=== PATIENT | male | born 1975 | race Caucasian/White ===

== ENCOUNTER 2018-01-09 13:51 | Emergency (ER) | payer BC, SELFPAY ==
[2018-01-09 13:58] VITALS: BP 155/92; PULSE 87; RESP 20; TEMP 37.2; O2SAT 97; BMI 21.2
[2018-01-09 14:25] VITALS: BP 152/104; PULSE 112; RESP 18; TEMP 36.6; O2SAT 98; BMI 21.0
--- NOTE | 2018-01-09 15:11 | HMH.EDUTC ---
[facility] [place] Disposition Clinical Impression: Animal bite Disposition: Home, Self-Care Condition on Discharge: Good Instructions: DI for Dog Bite Additional Instructions: Follow up with family doctor the first of next week for wound culture results to see if antibiotic needs to be changed and covering correct infection If you seen worsening of redness, streaks, swelling, or warmth go straight to ER REturn if needed Take medication as prescribed Over the counter Motrin or Tylenol as needed for pain and fever Prescriptions: Amoxicillin/Potassium Clav [Augmentin 875-125 Tablet] 1 tab PO Q12H #20 tab Forms: Work/School Release Time of Disposition: 15:31 Medical Decision Making - Medical Records Medical records reviewed: Yes: I reviewed the patient's medical records. Vital Signs: 01/09/18 13:58 01/09/18 14:25 Temperature 98.9 F 97.9 F Temperature Source Tympanic Oral Pulse Rate [Right Radial] 87 112 H Respiratory Rate 20 18 Blood Pressure [Left Arm] 155/92 152/104 Blood Pressure Mean [Left Arm] 113 120 Blood Pressure Source [Left Arm] Automatic Cuff Blood Pressure Position [Left Arm] Sitting Sitting 02 Sat by Pulse Oximetry 97 98 Oxygen Delivery Method Room Air Room Air Orders (Tests/Meds): ORDERS Category Date Time Status Wound Culture and Gram Stain ONCE Micro 01/09/18 14:34 Uncollected - Gregor Inquiry Pt receiving controlled substance: No Gregor was queried for this patient: No - Reevaluation(s) Time: 15:25 Reevaluation #1: Wound Culture obtained and sent to lab, wound area cleaned well with betadine and saline Area was marked and patient educated to watch for worsening of redness outside of marked lines and if redness continued to get worse, seen streaks or worsening of swelling along with fever to go straight to ER, DIscussed treatement with Antibiotics with Pharmacy and agreed Augmentin and have patient follow up with family doctor in 2-3 days for culture results to see if antibiotic needs changed [facility] [place] HPI - General Stated complaint: AO [id number] puppy scratch r thumb Mode of Arrival: Ambulatory Source of Information: Patient Limitations: No Limitations Description of Symptoms (Recalled from Triage Doc. by RN): sores on right thumb and hand; oozing yellowish/brown pus from dog scratch. HEENT Symptoms (Recalled from RN notes): No Resp Symptoms (Recalled from RN notes): No Skin Symptoms (Recalled from RN notes): Yes (open sore on r thumb and r hand, draining) MS Symptoms (Recalled from RN notes): No Functional Status (Recalled from RN notes): na - History of Present Illness Provider Complaint: Patient states that he was playing with his puppy about 2 weeks ago when the pup was trying to bite at a toy and accidently bite him on the hand States that he has been cleaning areas on his hand for the last 2 weeks with peroxide and alcohol State that he had 2 areas one on his right thumb and the top of his right hand State that today he noticed that areas looked red and was oozing puss like liquid from the wounds so he thought he better come in and get them checked out - Related Data Previous Rx's Medication Instructions Recorded Amoxicillin/Potassium Clav 1 tab PO Q12H #20 tab 01/09/18 [Augmentin 875-125 Tablet] Allergies Allergy/AdvReac Type Severity Reaction Status Date / Time NO KNOWN ALLERGIES Allergy Uncoded 11/04/17 14:36 - Worker's Comp Is this a Worker's Comp case?: No Is this an H Worker's Comp?: No Is this a [place] Worker's Comp?: No H History I have reviewed the patient's past medical history: Yes Medical History: Denies:: Cancer, Diabetes Mellitus Type 1, Diabetes Mellitus Type 2, MRSA Amputation: No - Social History Smoking Status: Current every day smoker Tobacco Type: cigarettes Alcohol Intake: never - Psychiatric History Expresses thoughts of harming self/others: None Suicide Plan Description: No Plan ROS Obtained: Yes All systems reviewed & no
--- NOTE | 2018-01-09 15:17 | ED_ITS ---
[facility] [place] Clinical Impression: Animal bite Disposition: Home, Self-Care Condition on Discharge: Good Instructions: DI for Dog Bite Additional Instructions: Follow up with family doctor the first of next week for wound culture results to see if antibiotic needs to be changed and covering correct infection If you seen worsening of redness, streaks, swelling, or warmth go straight to ER REturn if needed Take medication as prescribed Over the counter Motrin or Tylenol as needed for pain and fever Prescriptions: Amoxicillin/Potassium Clav [Augmentin 875-125 Tablet] 1 tab PO Q12H #20 tab Forms: Work/School Release Time of Disposition: 15:31 Medical Decision Making - Medical Records Medical records reviewed: Yes: I reviewed the patient's medical records. Vital Signs: 01/09/18 13:58 01/09/18 14:25 Temperature 98.9 F 97.9 F Temperature Source Tympanic Oral Pulse Rate [Right Radial] 87 112 H Respiratory Rate 20 18 Blood Pressure [Left Arm] 155/92 152/104 Blood Pressure Mean [Left Arm] 113 120 Blood Pressure Source [Left Arm] Automatic Cuff Blood Pressure Position [Left Arm] Sitting Sitting 02 Sat by Pulse Oximetry 97 98 Oxygen Delivery Method Room Air Room Air Orders (Tests/Meds): ORDERS Category Date Time Status Wound Culture and Gram Stain ONCE Micro 01/09/18 14:34 Uncollected - Gregor Inquiry Pt receiving controlled substance: No Gregor was queried for this patient: No - Reevaluation(s) Time: 15:25 Reevaluation #1: Wound Culture obtained and sent to lab, wound area cleaned well with betadine and saline Area was marked and patient educated to watch for worsening of redness outside of marked lines and if redness continued to get worse, seen streaks or worsening of swelling along with fever to go straight to ER, DIscussed treatement with Antibiotics with Pharmacy and agreed Augmentin and have patient follow up with family doctor in 2-3 days for culture results to see if antibiotic needs changed [facility] [place] HPI - General Stated complaint: AO [id number] puppy scratch r thumb Mode of Arrival: Ambulatory Source of Information: Patient Limitations: No Limitations Description of Symptoms (Recalled from Triage Doc. by RN): sores on right thumb and hand; oozing yellowish/brown pus from dog scratch. HEENT Symptoms (Recalled from RN notes): No Resp Symptoms (Recalled from RN notes): No Skin Symptoms (Recalled from RN notes): Yes (open sore on r thumb and r hand, draining) MS Symptoms (Recalled from RN notes): No Functional Status (Recalled from RN notes): na - History of Present Illness Provider Complaint: Patient states that he was playing with his puppy about 2 weeks ago when the pup was trying to bite at a toy and accidently bite him on the hand States that he has been cleaning areas on his hand for the last 2 weeks with peroxide and alcohol State that he had 2 areas one on his right thumb and the top of his right hand State that today he noticed that areas looked red and was oozing puss like liquid from the wounds so he thought he better come in and get them checked out - Related Data Previous Rx's Medication Instructions Recorded Amoxicillin/Potassium Clav 1 tab PO Q12H #20 tab 01/09/18 [Augmentin 875-125 Tablet] Allergies Allergy/AdvReac Type Severity Reaction Status Date / Time NO KNOWN ALLERGIES Allergy Uncoded 11/04/17 14:36
[2018-01-09 15:42] VITALS: BP 152/104; PULSE 112; RESP 18; TEMP 36.6; O2SAT 98
== END 2018-01-09 15:43 | disposition home or self-care (01) ==
LOC: ER 14:06 → UTC 14:11
PROVIDERS: Emergency Provider Emergency Medicine; Family Provider Family Medicine
DX: S60.371A Other superficial bite of right thumb, initial encounter (principal); W54.0XXA Bitten by dog, initial encounter; Y92.019 Unspecified place in single-family (private) house as the place of occurrence of the external cause; F17.210 Nicotine dependence, cigarettes, uncomplicated
CPT/HCPCS: 87070; 87077; 87186; 87205; 99202; 99281

== ENCOUNTER 2020-03-23 20:38 | Emergency (ER) | payer OTHER, BC, SELFPAY ==
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
[2020-03-23 20:52] VITALS: BP 147/108; PULSE 101; RESP 17; TEMP 36.6; O2SAT 97
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
[2020-03-23 21:07] VITALS: BMI 21.2
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
[2020-03-23 21:11] LABS: POC Glucose,Bedside 98 (70-110)
[2020-03-23 21:39] LABS: Chloride 101 mmol/L (98-107); Sodium 142 mmol/L (136-145)
[2020-03-23 21:40] LABS: Potassium 4.4 mmoL/L (3.5-5.1)
[2020-03-23 21:42] LABS: Alanine Aminotransferase 47 U/L (12-78); Albumin Level 5.4 g/dl (3.5-5.0); Albumin/Globulin Ratio 1.4 (1.1-1.8); Alkaline Phosphatase 118 U/L (38-126); Anion Gap 16.4 mEq/L (5-15); Aspartate Amino Transferase 117 U/L (17-59); Bilirubin,Total 0.5 mg/dl (0.2-1.3); Blood Urea Nitrogen 7 mg/dl (9-20); Calcium 9.7 mg/dl (8.4-10.2); Carbon Dioxide 29 mmol/L (22.0-30.0); Creatinine Clearance Estimated 130 mL/min (50-200); Estimated Glomerular Filt Rate 106 ml/min (>60); GFR (African American) 128 ML/MIN (>60); Globulin 3.9 g/dL (1.3-3.2); Glucose 110 mg/dl (74-100); Total Protein,Serum 9.3 g/dl (6.3-8.2)
[2020-03-23 21:43] LABS: Basophils # 0.1 K/mm3 (0-0.2); Eosinophils # 0.1 K/mm3 (0.0-0.4); Eosinophils % 0.7 % (0.1-12.0); Hematocrit 48.5 % (42.0-52.0); Hemoglobin 15.6 g/dL (14.1-18.0); Lymphocytes # 1.8 K/mm3 (0.7-4.5); Lymphocytes % 22.4 % (10-50); Mean Corpuscular HGB Conc 32.1 g/dL (31.8-35.4); Mean Corpuscular Hemoglobin 33.9 pg (27.0-31.2); Mean Corpuscular Volume 105.6 fl (80-94); Mean Platelet Volume 7.7 fl (7.4-10.4); Monocytes # 0.4 K/mm3 (0.1-1.0); Monocytes % 5.5 % (1.7-9.3); Neutrophils # 5.7 K/mm3 (1.8-7.8); Neutrophils % 70.5 % (37.0-80.0); Platelet Count 167 K/mm3 (142-424); Red Blood Count 4.59 M/mm3 (4.60-6.20); White Blood Count 8.1 K/mm3 (4.8-10.8)
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
[2020-03-23 22:03] LABS: Ethyl Alcohol 280 mg/dl (0-10)
[2020-03-23 22:14] VITALS: BP 164/91; PULSE 92; RESP 16; O2SAT 97
--- NOTE | 2020-03-23 22:28 | ECG_ITS ---
APPROVED REPORT Exam: Resting ECG HR:88 bpm ECG Measurements Heart Rate 88 AXES ID 134 P 75 QRSd 96 QRS 85 QT 362 T 76 QTc 438 <Conclusion> Normal sinus rhythm ST/T-wave changes consistent with early repolarization. Inferior Q waves are of questionable significance Abnormal ECG Electronically signed by : Cleveland Almazan, 03/25/2020 10:58:08
[2020-03-23 22:41] LABS: Creatine Kinase 559 U/L (55-170)
[2020-03-23 22:56] LABS: Troponin I < 0.01 ng/ml (0.00-0.034)
[2020-03-23 23:00] VITALS: BP 156/101; PULSE 89; RESP 16; O2SAT 97
[2020-03-23 23:30] VITALS: BP 159/105; PULSE 92; RESP 16; O2SAT 97
[2020-03-24] VITALS: BP 148/96; PULSE 95; RESP 16; O2SAT 97
[2020-03-24 00:01] VITALS: BP 148/96; PULSE 95; RESP 16; TEMP 37.2; O2SAT 98
== END 2020-03-24 00:02 | disposition short-term general hospital (02) ==
PROVIDERS: Emergency Provider Emergency Medicine
DX: S22.22XA Fracture of body of sternum, initial encounter for closed fracture (principal); V49.50XA Passenger injured in collision with unspecified motor vehicles in traffic accident, initial encounter; F17.210 Nicotine dependence, cigarettes, uncomplicated; F10.10 Alcohol abuse, uncomplicated
CPT/HCPCS: 70450; 71045; 71275; 72125; 72170; 74177; 80053; 82550; 82962; 84484; 85025; 93005; 96365; 96375; 99283; 99284; Q9967

== ENCOUNTER → 2020-04-06 12:32 | Outpatient (CLI) | payer BC, SELFPAY ==
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
== END ==
PROVIDERS: PCP Family Medicine; Visit Provider Family Medicine
DX: R07.89 Other chest pain (principal); S22.22XA Fracture of body of sternum, initial encounter for closed fracture
CPT/HCPCS: 71120

== ENCOUNTER 2021-07-30 18:32 | Emergency (ER) | payer OTHER, SELFPAY ==
[2021-07-30 20:10] VITALS: BP 172/103; PULSE 116; RESP 16; TEMP 36.8; O2SAT 95; BMI 21.9
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
--- NOTE | 2021-07-30 20:37 | HMH.EDUTC ---
[facility] [place] Dis[place] Clinical Impression: Wound infection, Multiple injuries Disposition: Home, Self-Care Condition on Discharge: Good Instructions: DI for Wound Infection, Trimethoprim/Sulfamethoxazole (Alternative Therapy) Additional Instructions: Make sure to call Dr Larrys office first thing in the morning for appointment and let them know you was seen in [facility] Take medication as prescribed *Start antibiotic(s) immediately and be sure to take as ordered for the FULL length of time although you may be feeling better or start to see improvement in the next 24-48 hours *Monitor closely. Outlined redness so that you can monitor easier. Follow up immediately for new or worsening symptoms including but not limited to redness, swelling, streaking from site fever or chills. *Never squeeze or pop these on your own. Seek immediate medical attention next time this occurs *Monitor Temp. Tylenol every 4 hours as needed and ibuprofen every 6 hours as needed (as long as your primary care doctor has told you that it is ok to take both. For fever, aches, pain. ER if no less that 101 despite Tylenol and ibuprofen Follow up with your family doctor/primary care physician in the next 48-72 hours if no improvement Again Take medication as prescribed and follow up with Dr Larry call office tomorrow morning for appointment Prescriptions: Sulfamethoxazole/Trimethoprim [Bactrim DS tablet] 1 each PO BID #20 tab Transmission Status: Pending to [facility] Referrals: Myron Larry MD [Staff Physician] - (Call office first thing in the morning for appointment) Wojciech Boyle MD [Primary Care Provider] - As needed Forms: Work/School Release Medical Decision Making - Gregor Inquiry Pt receiving controlled substance: No Gregor was queried for this patient: No Vital Signs: 07/30/21 20:10 07/30/21 21:00 Temperature 98.2 F 98.2 F Temperature Source Oral Pulse Rate 116 H Pulse Rate [Right Brachial] 116 H Respiratory Rate 16 16 Blood Pressure 172/103 H Blood Pressure [Right Arm] 172/103 H Blood Pressure Mean [Right Arm] 126 Blood Pressure Source [Right Arm] Automatic Cuff Blood Pressure Position [Right Arm] Sitting 02 Sat by Pulse Oximetry 95 Oxygen Delivery Method Room Air Orders (Tests/Meds): ED MEDICATIONS Discontinued Medications Generic Name Dose Route Start Last Admin Trade Name Freq PRN Reason Stop Dose Admin Trimethoprim/Sulfamethoxazole 1 each 07/30/21 21:41 07/30/21 21:54 Sulfa/Trimethoprim 1 Tablet PO 07/30/21 21:42 1 each ONCE ONE Administration ORDERS Category Date Time Status Tibia/fibula XR right 2 views [XR tibia fibula RT 2V] Exams 07/30/21 20:22 Taken Stat - Radiology Data #1 Image(s): Chest (with left ribs) Image Reviewed: Yes I have reviewed radiologist's interpretation IMPRESSION: No acute findings. #2 Image(s): Elbow (right) Image Reviewed: Yes I have reviewed radiologist's interpretation IMPRESSION: No acute findings #3 Image(s): Tib/Fib Image Reviewed: Yes I have reviewed radiologist's interpretation IMPRESSION: Soft tissue injury without acute osseous abnormality. - Physician Consults Physician Consulted: Dr Larry Time: 21:22 Reason -: Surgical Eval/Care Comment/Response: Spoke with Dr Larry concerning wound on right lower leg and redness and needing evaluation for possibly opening and debriding wound and he advised start patient on Bactrim and have him call office tomorrow morning first thing for appointment Medical Decision Narrative: Discussed with patient due to appearance of wound on right lower leg recommended lab work and transfer to the ED for further work up and evaluation and patient declined State that he would just like something for the infection Discussed with patient if he would follow up with Surgery to have them look at it to see if Patient discussed with patient about blood pressure and again recommended transfer to the
[2021-07-30 21:00] VITALS: BP 172/103; PULSE 116; RESP 16; TEMP 36.8; O2SAT 95
== END 2021-07-30 22:15 | disposition home or self-care (01) ==
PROVIDERS: Emergency Provider Nurse Practitioner; PCP Family Medicine
DX: L03.115 Cellulitis of right lower limb (principal); T07.XXXA Unspecified multiple injuries, initial encounter; Y92.019 Unspecified place in single-family (private) house as the place of occurrence of the external cause; W11.XXXA Fall on and from ladder, initial encounter; F17.210 Nicotine dependence, cigarettes, uncomplicated
CPT/HCPCS: 71101; 73080; 73590; 99202; G0463

== ENCOUNTER → 2021-08-04 13:04 | Outpatient (CLI) | payer BC, SELFPAY | PROVIDERS: PCP Family Medicine; Visit Provider Surgery | DX: M79.661 Pain in right lower leg (principal); L03.115 Cellulitis of right lower limb; T14.8XXA Other injury of unspecified body region, initial encounter; Z48.00 Encounter for change or removal of nonsurgical wound dressing | CPT/HCPCS: G0463 ==

== ENCOUNTER 2021-08-06 16:50 | Outpatient (CLI) | payer BC, SELFPAY | END 2021-08-06 17:29 | disposition home or self-care (01) | LOC: INF 16:51 | PROVIDERS: PCP Family Medicine; Visit Provider Surgery | DX: S81.801A Unspecified open wound, right lower leg, initial encounter (principal); Z48.00 Encounter for change or removal of nonsurgical wound dressing | CPT/HCPCS: G0463 ==

== ENCOUNTER 2021-08-10 15:31 | Outpatient (CLI) | payer BC, SELFPAY | END 2021-08-10 15:50 | disposition home or self-care (01) | LOC: INF 15:32 | PROVIDERS: PCP Family Medicine; Visit Provider Surgery | DX: M79.661 Pain in right lower leg (principal); L03.115 Cellulitis of right lower limb; T14.8XXA Other injury of unspecified body region, initial encounter; Z48.00 Encounter for change or removal of nonsurgical wound dressing | CPT/HCPCS: G0463 ==

== ENCOUNTER 2022-03-11 14:28 | Emergency (ER) | payer OTHER, SELFPAY ==
[2022-03-11 15:44] LABS: Adenovirus,PCR Not Detected (NotDetected); Bordetella Pertussis Not Detected (NotDetected); Chlamydophila Pneumoniae, PCR Not Detected (NotDetected); Coronavirus 19, PCR Not Detected (NotDetected); Coronavirus 229E Not Detected (NotDetected); Coronavirus NL63 Not Detected (NotDetected); Coronavirus OC43 Not Detected (NotDetected); Coronovirus HKU1,PCR Not Detected (NotDetected); Human Metapneumovirus Not Detected (NotDetected); Influenza A, PCR Not Detected (NotDetected); Influenza AH1, 2009 Not Detected (NotDetected); Influenza AH1, PCR Not Detected (NotDetected); Influenza AH3,PCR Not Detected (NotDetected); Influenza B, PCR Not Detected (NotDetected); Mycoplasma Pneumoniae, PCR Not Detected (NotDetected); Parainfluenza 1, PCR Not Detected (NotDetected); Parainfluenza 2, PCR Not Detected (NotDetected); Parainfluenza 3, PCR Not Detected (NotDetected); Parainfluenza 4, PCR Not Detected (NotDetected); Respiratory Syncytial Virus Not Detected (NotDetected); Rhinovirus/Enterovirus Not Detected (NotDetected)
[2022-03-11 15:49] VITALS: BP 141/90; PULSE 91; RESP 19; TEMP 36.8; O2SAT 98; BMI 19.2
--- NOTE | 2022-03-11 15:56 | HMH.EDUTC ---
[facility] [place] Disposition Clinical Impression: Exposure to COVID-19 virus Nausea & vomiting Qualifiers: Vomiting type: unspecified Qualified Code(s): R11.2 - Nausea with vomiting, unspecified Disposition: Home, Self-Care Condition on Discharge: Good Instructions: Ondansetron, DI for COVID-19 (Suspected or Confirmed ), COVID-19 Viral Test Additional Instructions: Quarantine for at least 5 days Stay home Stay home and quarantine for at least 5 full days. Wear a well-fitting mask if you must be around others in your home. Do not travel. Get tested Even if you don?t develop symptoms, get tested at least 5 days after you last had close contact with someone with COVID-19. After quarantine Watch for symptoms Watch for symptoms until 10 days after you last had close contact with someone with COVID-19. Avoid travel It is best to avoid travel until a full 10 days after you last had close contact with someone with COVID-19. If you develop symptoms Isolate immediately and get tested. Continue to stay home until you know the results. Wear a well-fitting mask around others. Take precautions until day 10 Wear a well-fitting mask Wear a well-fitting mask for 10 full days any time you are around others inside your home or in public. Do not go to places where you are unable to wear a well-fitting mask. If you must travel during days 6-10, take precautions. Avoid being around people who are more likely to get very sick from COVID-19. You may check your results on the [facility] My Health Portal Return if needed Straight to ER if any life threatening symptoms Prescriptions: Ondansetron [Zofran 4mg ODT] 4 mg PO TIDP PRN #10 tab PRN Reason: Nausea Transmission Status: Pending to [facility] Referrals: Wojciech Boyle MD [Primary Care Provider] - As needed Forms: Work/School Release Time of Disposition: 16:09 Medical Decision Making - Gregor Inquiry Pt receiving controlled substance: No Gregor was queried for this patient: No Vital Signs: 03/11/22 15:49 Temperature 98.2 F Temperature Source Oral Pulse Rate [Right Radial] 91 H Respiratory Rate 19 Blood Pressure [Right Arm] 141/90 H Blood Pressure Mean [Right Arm] 107 Blood Pressure Source [Right Arm] Automatic Cuff Blood Pressure Position [Right Arm] Sitting 02 Sat by Pulse Oximetry 98 Oxygen Delivery Method Room Air Orders (Tests/Meds): ORDERS Category Date Time Status Full Resp Panel w/COVID ([facility]) Routine Lab 03/11/22 15:36 Received [facility] HPI - General Stated complaint: stomach ache, congestion, runny nose Time Seen by Provider: 03/11/22 15:57 Mode of Arrival: Ambulatory Source of Information: Patient Limitations: No Limitations Description of Symptoms (Recalled from Triage Doc. by RN): Pt stated that he has nausea, chills, fatigue, and was exposed to covid. HEENT Symptoms (Recalled from RN notes): Yes Resp Symptoms (Recalled from RN notes): No Skin Symptoms (Recalled from RN notes): No MS Symptoms (Recalled from RN notes): No Functional Status (Recalled from RN notes): n/a - History of Present Illness Provider Complaint: Patient states that he lives with a friend and recenty his son tested positive for COVID states that he has been having fatigue, body aches, chills and N/V and he came in to get checked for the virus - Related Data Previous Rx's Medication Instructions Recorded Amoxicillin/Potassium Clav 1 tab PO Q12H #20 tab 01/09/18 [Augmentin 875-125 Tablet] Sulfamethoxazole/Trimethoprim 1 each PO BID #20 tab 07/30/21 [Bactrim DS tablet] Ondansetron [Zofran 4mg ODT] 4 mg PO TIDP PRN #10 tab 03/11/22 Allergies Allergy/AdvReac Type Severity Reaction Status Date / Time No Known Allergies Allergy Verified 03/11/22 15:53 - Worker's Comp Is this a Worker's Comp case?: No [facility] History - Hepatitis A Screen Drug use history?: No High risk sexual behaviors?: No History of sexually transmitted infection?: No Currently employed?: N
[2022-03-11 16:28] VITALS: BP 141/90; PULSE 91; RESP 19; TEMP 36.8; O2SAT 98
== END 2022-03-11 16:28 | disposition home or self-care (01) ==
PROVIDERS: Emergency Provider Nurse Practitioner; PCP Family Medicine
DX: R11.2 Nausea with vomiting, unspecified (principal); Z20.822 Contact with and (suspected) exposure to COVID-19; F17.210 Nicotine dependence, cigarettes, uncomplicated
CPT/HCPCS: 87581; 87632; 87798; 99213; C9803; G0463; U0003; U0005

== ENCOUNTER 2022-03-23 14:32 | Emergency (ER) | payer OTHER, SELFPAY ==
--- NOTE | 2022-03-23 14:46 | HMH.EDUTC ---
[facility] [place] Clinical Impression: Exposure to COVID-19 virus Acute bronchitis Qualifiers: Bronchitis organism: unspecified organism Qualified Code(s): J20.9 - Acute bronchitis, unspecified Disposition: Home, Self-Care Condition on Discharge: Good Instructions: DI for Acute Bronchitis, DI for COVID-19 (Suspected or Confirmed ), Preventing the Spread of Coronavirus Discharge Instructions Additional Instructions: Drink plenty of fluids. Take tylenol or ibuprofen for pain or fever. Take the medications as directed. Follow up with your regular doctor. GO TO THE ER FOR ANY WORSENING SYMPTOMS Quarantine until you know the results of your covid-19 test. Notify your school or workplace of your results and follow their instructions regarding return to work/school. Prescriptions: Benzonatate [Benzonatate 100mg cap] 100 mg PO TIDP PRN #30 cap PRN Reason: Cough Transmission Status: Received by [facility] methylPREDNISolone [Medrol] 4 mg PO DIRECTED 6 Days #21 packet Transmission Status: Received by [facility] guaiFENesin [Mucinex 600mg tablet] 1 - 2 tab PO BIDP PRN #30 tab PRN Reason: Congestion Transmission Status: Received by [facility] Azithromycin [Z-Dharmesh 250mg Tab*] 250 mg PO UD DOSE PK #6 tab Transmission Status: Received by [facility] Referrals: Wojciech Boyle MD [Primary Care Provider] - Forms: Work/School Release Time of Disposition: 15:10 Medical Decision Making - Medical Records Medical records reviewed: No: I reviewed the patient's medical records. - Gregor Inquiry Pt receiving controlled substance: No Vital Signs: 03/23/22 14:59 03/23/22 15:14 Temperature 98.1 F 98.1 F Temperature Source Oral Pulse Rate 90 Pulse Rate [Left] 104 H Respiratory Rate 18 18 Blood Pressure 147/97 H 02 Sat by Pulse Oximetry 98 - Lab Data Lab Results 03/23/22 14:43: Group A Strep Rapid Negative 03/23/22 14:47: Influenza Type A Ag Negative, Influenza Type B Ag Negative Orders (Tests/Meds): ORDERS Category Date Time Status Covid-19 Nasal PCR ([facility]) Routine Lab 03/23/22 15:18 Received Strep Screen Confirmation Stat Micro 03/23/22 14:43 Received [facility] HPI - General Stated complaint: naseua, congestion Time Seen by Provider: 03/23/22 14:46 - History of Present Illness Provider Complaint: He states that for the past 3 days he has had a cough and sinus congestion. - Related Data Previous Rx's Medication Instructions Recorded Amoxicillin/Potassium Clav 1 tab PO Q12H #20 tab 01/09/18 [Augmentin 875-125 Tablet] Sulfamethoxazole/Trimethoprim 1 each PO BID #20 tab 07/30/21 [Bactrim DS tablet] Ondansetron [Zofran 4mg ODT] 4 mg PO TIDP PRN #10 tab 03/11/22 Azithromycin [Z-Dharmesh 250mg Tab*] 250 mg PO UD DOSE PK #6 tab 03/23/22 Benzonatate [Benzonatate 100mg 100 mg PO TIDP PRN #30 cap 03/23/22 cap] guaiFENesin [Mucinex 600mg tablet] 1 - 2 tab PO BIDP PRN #30 tab 03/23/22 methylPREDNISolone [Medrol] 4 mg PO DIRECTED 6 Days #21 03/23/22 packet Allergies Allergy/AdvReac Type Severity Reaction Status Date / Time No Known Allergies Allergy Verified 03/23/22 15:03 [facility] History - Hepatitis A Screen Attestation statement:: This patient has been screened for Hepatitis A risk factors. I have reviewed the patient's past medical history: Yes Medical History: Denies:: Cancer, Diabetes Mellitus Type 1, Diabetes Mellitus Type 2, MRSA Amputation: No - Social History Smoking Status: Current every day smoker Tobacco Type: cigarettes # Packs/Day (cigarettes): 2 Alcohol Intake: current Alcohol Intake Frequency:: 3 or more drinks per day Occupational Status: employed Family Hx:: No significant family history ROS Obtained: Yes All systems reviewed & no additional complaints - Constitutional Constitutional: Reports as per HPI - Eyes Eyes: Denies eye discharge - ENT Ears, Nose, Mouth, and Throat: Reports as
[2022-03-23 14:59] VITALS: PULSE 104; RESP 18; TEMP 36.7; O2SAT 98; BMI 21.9
[2022-03-23 14:59] LABS: UTC Influenza A Antigen Negative (Negative); UTC Influenza B Antigen Negative (Negative)
[2022-03-23 15:14] VITALS: BP 147/97; PULSE 90; RESP 18; TEMP 36.7
[2022-03-23 15:49] LABS: Strep Scrn Group A (Rapid) Negative (Negative)
--- NOTE | 2022-03-24 13:35 | PC.NURSE ---
informed patient that he is positive
== END 2022-03-23 15:28 | disposition home or self-care (01) ==
PROVIDERS: Emergency Provider Nurse Practitioner Family; PCP Family Medicine
DX: Z20.822 Contact with and (suspected) exposure to COVID-19 (principal); J20.9 Acute bronchitis, unspecified
CPT/HCPCS: 87430; 87804; 99212; C9803; G0463; U0003; U0005

== ENCOUNTER 2023-07-07 08:42 | Emergency (ER) | payer SELFPAY ==
[2023-07-07 08:42] VITALS: BP 145/91; PULSE 105; RESP 16; TEMP 36.8; O2SAT 96; BMI 21.2
--- NOTE | 2023-07-07 09:01 | EXP.UTC ---
Discharge Plan Disposition Patient Disposition: Home, Self-Care Condition: Good Prescriptions Prescriptions: New ibuprofen [IBU] 800 mg tablet 800 mg PO Q8HP PRN (Reason: Moderate Pain) Qty: 30 0RF amoxicillin-pot clavulanate 875-125 mg Tablet 1 tab PO Q12H Qty: 20 0RF No Action amoxicillin-pot clavulanate 1 EACH tablet 1 tab PO Q12H Qty: 20 0RF sulfamethoxazole-trimethoprim 1 EACH tablet 1 each PO BID Qty: 20 0RF ondansetron 4 MG tablet,disintegrating 4 mg PO TIDP PRN (Reason: Nausea) Qty: 10 0RF azithromycin 250 MG tablet 250 mg PO UD DOSE PK Qty: 6 0RF Rx Instructions: Take two (2) tablets today, then one (1) tablet days #2 thru #5 benzonatate 100 MG capsule 100 mg PO TIDP PRN (Reason: Cough) Qty: 30 0RF methylprednisolone 4 MG tablets,dose pack 4 mg PO DIRECTED 6 Days Qty: 21 0RF guaifenesin 600 MG tablet extended release 12hr 1 - 2 tab PO BIDP PRN (Reason: Congestion) Qty: 30 0RF Referrals Follow up/Referrals: Provider,Referral, MD [Primary Care Provider] - See instructions Activity Restrictions/Add. Instructions Additional Instructions/Restrictions: Drink plenty of fluids. Take ibuprofen for pain or fever. I sent in a prescription to your pharmacy. Take the medications as directed. Follow up with your regular doctor. You must follow up with your dentist. Please call and get an appointment to be seen there. GO TO THE ER FOR ANY WORSENING SYMPTOMS Clinical Impressions Clinical Impression: Abscess, dental, Pain, dental Instructions Patient Instructions: DI for Tooth Abscess, Tooth Abscess Discharge ED Provider: Sheldon Solis [facility] General Stated complaint: dental pain Mode of Arrival: Ambulatory Source of Information: Patient Limitations: No Limitations Time Seen by Provider: 07/07/23 09:01 Description of Symptoms (Recalled from Triage Doc. by RN): Patient reports wisdom tooth pain x 1 week. HEENT Symptoms (Recalled from RN notes): Yes Resp Symptoms (Recalled from RN notes): No Skin Symptoms (Recalled from RN notes): No MS Symptoms (Recalled from RN notes): No Functional Status (Recalled from RN notes): wnl History of Present Illness Provider Complaint: He c/o right lower jaw dental pain for the past 1 week. Related Data Previous Rx's Medication Instructions Recorded amoxicillin 875 mg-potassium 1 tab PO Q12H #20 tabs 01/09/18 clavulanate 125 mg tablet sulfamethoxazole 800 1 each PO BID #20 tabs 07/30/21 mg-trimethoprim 160 mg tablet ondansetron 4 mg disintegrating 4 mg PO TIDP PRN Nausea #10 tabs 03/11/22 tablet azithromycin 250 mg tablet 250 mg PO UD DOSE PK #6 tabs 03/23/22 benzonatate 100 mg capsule 100 mg PO TIDP PRN Cough #30 caps 03/23/22 guaifenesin 600 mg tablet, 1 - 2 tab PO BIDP PRN Congestion 03/23/22 extended release 12 hr #30 tabs methylprednisolone 4 mg tablets in 4 mg PO DIRECTED 6 days #21 03/23/22 a dose pack packets amoxicillin 875 mg-potassium 1 tab PO Q12H #20 tabs 07/07/23 clavulanate 125 mg tablet ibuprofen 800 mg tablet (IBU) 800 mg PO Q8HP PRN Moderate Pain 07/07/23 #30 tabs Allergies Allergy/AdvReac Type Severity Reaction Status Date / Time No Known Allergies Allergy Verified 03/23/22 15:03 Worker's Comp Is this a Worker's Comp case?: No [facility] Disclaimer: The information contained in this section may have been updated after the patient was seen, as this information can be updated by other users. Social History Smoking Status: Current every day smoker tobacco type: cigarettes packs per day: 2 alcohol intake: current current occupational status: employed Travel in the last 8 weeks: None ROS Obtained: Yes All systems reviewed & no additional complaints except as documented Constitutional Constitutional: Denies chills and Denies fever(s) Eyes Eyes: Denies eye discharge ENT Ears, Nose, Mouth, and Throat: Reports as per HPI, Denies dizziness, De
[2023-07-07 09:21] VITALS: BP 145/91; PULSE 105; RESP 16; TEMP 36.8; O2SAT 96
== END 2023-07-07 09:21 | disposition home or self-care (01) ==
PROVIDERS: Emergency Provider Nurse Practitioner Family
DX: K04.7 Periapical abscess without sinus (principal); R68.84 Jaw pain; F17.210 Nicotine dependence, cigarettes, uncomplicated
CPT/HCPCS: 99212; 99214; G0463